=== PATIENT | male | born 1940 | race Caucasian/White ===

== ENCOUNTER 2021-11-09 14:22 | Inpatient (IN) ==
[2021-11-09] MEDS ORDERED: Naloxone 0.4 MG/ML INJ IVP PRN (21:25)
[2021-11-09] MEDS ORDERED: Melatonin 3 MG TABLET PO PRN (21:25)
[2021-11-09] MEDS ORDERED: Ondansetron ODT 4 MG TAB.RAPDIS SL PRN (21:25)
[2021-11-09] MEDS: levETIRAcetam 250 MG TABLET PO SCH (23:05)
[2021-11-10 05:22] LABS: Basophils % 0.5 %
[2021-11-10 05:25] LABS: Eosinophils # 0.2 K/mcL (0.0-0.6); Eosinophils % 3.7 %; Hematocrit 39.1 % (37.5-50.1); Hemoglobin 12.9 g/dL (12.9-16.9); Immature Granulocytes % 1.7 % (0-4); Immature Platelets 3.4 % (1.1-6.1); Lymphocytes % 24.1 %; Mean Corpuscular Hemoglobin 29.7 pg (28.0-33.3); Mean Corpuscular Volume 90.1 fL (83.0-100.0); Mean Platelet Volume 9.3 fL (9.4-12.4); Monocytes # 0.5 K/mcL (0.0-1.3); Monocytes % 11.8 %; Neutrophils # 2.4 K/mcL (1.6-8.9); Red Blood Count 4.34 M/mcL (4.19-5.50); Red Cell Distribution Width 14.6 % (11.5-14.5); Segmented Neutrophils % 58.2 %; White Blood Count 4.1 K/mcL (4.3-11.1)
[2021-11-10 05:28] LABS: Platelet Count 90 K/mcL (140-400)
[2021-11-10 05:31] LABS: INR 1.9; Prothrombin Time 21.5 Seconds (9.4-12.1)
[2021-11-10 05:42] LABS: BUN/Creatinine Ratio 12 (6-26); Blood Urea Nitrogen 10 mg/dL (8-23); Carbon Dioxide 27 mEq/L (23-29); Chloride 99 mEq/L (98-107); Glucose 104 mg/dL (70-105); Osmolality,Calculated 277 (280-300); Sodium 134 mEq/L (136-145); eGFR For African Americans > 60 (> 60); eGFR For Non-African Americans > 60 (> 60)
[2021-11-10] MEDS: Gabapentin 400 MG CAPSULE PO SCH ×3 (07:48→21:36)
[2021-11-10] MEDS: levETIRAcetam 250 MG TABLET PO SCH ×2 (07:49→21:36)
[2021-11-10] MEDS: Budesonide/Formoterol 80/4.5 1 PUFF INH IH SCH ×2 (08:15→22:10)
[2021-11-10] MEDS ORDERED: Finasteride 5 MG TABLET PO SCH (21:00)
[2021-11-11 06:16] LABS: INR 1.5; Prothrombin Time 16.6 Seconds (9.4-12.1)
[2021-11-11 06:30] LABS: BUN/Creatinine Ratio 13 (6-26); Blood Urea Nitrogen 12 mg/dL (8-23); Calcium 9.2 mg/dL (8.6-10.3); Carbon Dioxide 29 mEq/L (23-29); Chloride 101 mEq/L (98-107); Glucose 88 mg/dL (70-105); Osmolality,Calculated 279 (280-300); Potassium 4.2 mEq/L (3.5-5.1); Sodium 135 mEq/L (136-145); eGFR For African Americans > 60 (> 60); eGFR For Non-African Americans > 60 (> 60)
[2021-11-11 06:43] LABS: Basophils % 0.6 %; Eosinophils # 0.1 K/mcL (0.0-0.6); Eosinophils % 2.1 %; Hematocrit 39.8 % (37.5-50.1); Immature Granulocytes % 2.1 % (0-4); Lymphocytes % 24.4 %; Mean Corpuscular HGB Conc 32.7 g/dL (31.6-35.5); Mean Corpuscular Hemoglobin 29.7 pg (28.0-33.3); Mean Corpuscular Volume 91.1 fL (83.0-100.0); Mean Platelet Volume 9.4 fL (9.4-12.4); Monocytes # 0.5 K/mcL (0.0-1.3); Monocytes % 10.7 %; Neutrophils # 2.8 K/mcL (1.6-8.9); Platelet Count 105 K/mcL (140-400); Red Blood Count 4.37 M/mcL (4.19-5.50); Red Cell Distribution Width 14.9 % (11.5-14.5); Segmented Neutrophils % 60.1 %; White Blood Count 4.7 K/mcL (4.3-11.1)
[2021-11-11 06:45] LABS: Lymphocytes # 1.2 K/mcL (0.6-4.6)
[2021-11-11] MEDS: levETIRAcetam 250 MG TABLET PO SCH ×2 (08:45→21:26)
[2021-11-11] MEDS: Gabapentin 400 MG CAPSULE PO SCH ×3 (08:45→21:27)
[2021-11-11] MEDS ORDERED: *HR* FentaNYL (PF) 100 MCG/2 ML VIAL IVP PRN (09:04)
[2021-11-11] MEDS ORDERED: Ondansetron 4 MG/2 ML VIAL IVP PRN (09:04)
[2021-11-11] MEDS ORDERED: *HR* HYDROmorphone PF 0.5 MG/0.5 ML SYRINGE IVP PRN (09:04)
[2021-11-11] MEDS ORDERED: Ropivacaine/PF 0.5% 30 ML VIAL ONE (09:56)
[2021-11-11] MEDS ORDERED: ROPIVACAINE/PF/NS 0.25% 1 EACH SYRINGE INTRAART ONE (09:56)
[2021-11-11] MEDS: Budesonide/Formoterol 80/4.5 1 PUFF INH IH SCH ×2 (10:02→20:40)
[2021-11-11] MEDS ORDERED: *HR* Propofol 200 MG/20 ML VIAL IVP ONE (10:02)
[2021-11-11] MEDS ORDERED: *HR* FentaNYL (PF) 100 MCG/2 ML VIAL ONE (10:02)
[2021-11-11] MEDS ORDERED: Lidocaine -MPF 2% 2 ML VIAL ONE (10:05)
[2021-11-11] MEDS ORDERED: Ondansetron 4 MG/2 ML VIAL ONE (10:05)
[2021-11-11] MEDS ORDERED: Bupivacaine/EPI 1:200k 0.25% 50 ML VIAL ONE (11:08)
[2021-11-11] MEDS ORDERED: EPHEDrine 50 MG/ML VIAL ONE (11:40)
[2021-11-11] MEDS ORDERED: Ipratropium/Albuterol Neb 3 ML IH ONE (13:23)
[2021-11-11] MEDS ORDERED: Ipratropium/Albuterol Neb 3 ML ONE (13:28)
[2021-11-11] MEDS ORDERED: Ondansetron ODT 4 MG TAB.RAPDIS SL PRN (14:03)
[2021-11-11] MEDS ORDERED: Melatonin 3 MG TABLET PO PRN (14:03)
[2021-11-11] MEDS ORDERED: Naloxone 0.4 MG/ML INJ IVP PRN (14:03)
[2021-11-11] MEDS: CeFAZolin 2,000 MG/120 ML BAG IVPB SCH (21:26)
[2021-11-11] MEDS: Finasteride 5 MG TABLET PO SCH (21:26)
[2021-11-12 02:47] LABS: Basophils % 0.1 %
[2021-11-12 02:49] LABS: Mean Corpuscular HGB Conc 33.5 g/dL (31.6-35.5); Monocytes % 4.1 %
[2021-11-12 02:54] LABS: INR 1.4; Prothrombin Time 15.3 Seconds (9.4-12.1)
[2021-11-12 03:04] LABS: BUN/Creatinine Ratio 16 (6-26); Blood Urea Nitrogen 13 mg/dL (8-23); Calcium 9.1 mg/dL (8.6-10.3); Carbon Dioxide 24 mEq/L (23-29); Chloride 99 mEq/L (98-107); Glucose 139 mg/dL (70-105); Hematocrit 39.1 % (37.5-50.1); Hemoglobin 13.1 g/dL (12.9-16.9); Immature Granulocytes % 1.1 % (0-4); Immature Platelets 2.8 % (1.1-6.1); Lymphocytes # 0.6 K/mcL (0.6-4.6); Lymphocytes % 6.6 %; Magnesium 1.7 mg/dL (1.6-2.6); Mean Corpuscular Hemoglobin 29.8 pg (28.0-33.3); Mean Corpuscular Volume 88.9 fL (83.0-100.0); Mean Platelet Volume 9.7 fL (9.4-12.4); Neutrophils # 7.4 K/mcL (1.6-8.9); Osmolality,Calculated 278 (280-300); Platelet Count 115 K/mcL (140-400); Potassium 4.4 mEq/L (3.5-5.1); Red Cell Distribution Width 14.4 % (11.5-14.5); Segmented Neutrophils % 88.1 %; Sodium 133 mEq/L (136-145); White Blood Count 8.4 K/mcL (4.3-11.1); eGFR For African Americans > 60 (> 60); eGFR For Non-African Americans > 60 (> 60)
[2021-11-12 03:07] LABS: Monocytes # 0.3 K/mcL (0.0-1.3)
[2021-11-12] MEDS: CeFAZolin 2,000 MG/120 ML BAG IVPB SCH (04:40)
[2021-11-12] MEDS: Gabapentin 400 MG CAPSULE PO SCH ×3 (09:08→21:19)
[2021-11-12] MEDS: levETIRAcetam 250 MG TABLET PO SCH ×2 (09:08→21:18)
[2021-11-12] MEDS: Budesonide/Formoterol 80/4.5 1 PUFF INH IH SCH ×2 (10:44→20:46)
[2021-11-12] MEDS ORDERED: Warfarin perPT PO PRN (18:00)
[2021-11-12] MEDS ORDERED: *HR* Warfarin 4 MG TABLET PO ONE (18:00)
[2021-11-12] MEDS: Finasteride 5 MG TABLET PO SCH (21:18)
[2021-11-13 06:17] LABS: Hematocrit 37.3 % (37.5-50.1); Hemoglobin 12.2 g/dL (12.9-16.9); Immature Platelets 3.7 % (1.1-6.1); Mean Corpuscular HGB Conc 32.7 g/dL (31.6-35.5); Mean Corpuscular Hemoglobin 30.2 pg (28.0-33.3); Mean Corpuscular Volume 92.3 fL (83.0-100.0); Mean Platelet Volume 9.6 fL (9.4-12.4); Red Blood Count 4.04 M/mcL (4.19-5.50); Red Cell Distribution Width 14.7 % (11.5-14.5); White Blood Count 8.2 K/mcL (4.3-11.1)
[2021-11-13 06:18] LABS: INR 1.2; Prothrombin Time 13.4 Seconds (9.4-12.1)
[2021-11-13 06:34] LABS: BUN/Creatinine Ratio 25 (6-26); Blood Urea Nitrogen 20 mg/dL (8-23); Calcium 8.9 mg/dL (8.6-10.3); Carbon Dioxide 25 mEq/L (23-29); Chloride 101 mEq/L (98-107); Glucose 137 mg/dL (70-105); Osmolality,Calculated 283 (280-300); Potassium 3.8 mEq/L (3.5-5.1); Sodium 134 mEq/L (136-145); eGFR For African Americans > 60 (> 60); eGFR For Non-African Americans > 60 (> 60)
[2021-11-13] MEDS: Gabapentin 400 MG CAPSULE PO SCH ×3 (10:10→20:36)
[2021-11-13] MEDS: levETIRAcetam 250 MG TABLET PO SCH ×2 (10:10→20:36)
[2021-11-13] MEDS: Budesonide/Formoterol 80/4.5 1 PUFF INH IH SCH ×2 (10:11→21:46)
[2021-11-13] MEDS ORDERED: *HR* OxyCODONE Immed Rel 5 MG TABLET PO PRN (16:27)
[2021-11-13] MEDS: *HR* OxyCODONE Immed Rel 5 MG TABLET PO PRN (17:48)
[2021-11-13] MEDS ORDERED: *HR* Warfarin 4 MG TABLET PO ONE (18:00)
[2021-11-13] MEDS: Finasteride 5 MG TABLET PO SCH (20:36)
[2021-11-14 03:39] LABS: Hematocrit 36.9 % (37.5-50.1); Immature Platelets 3.2 % (1.1-6.1); Mean Corpuscular HGB Conc 32.5 g/dL (31.6-35.5); Mean Corpuscular Hemoglobin 29.6 pg (28.0-33.3); Mean Corpuscular Volume 90.9 fL (83.0-100.0); Mean Platelet Volume 9.4 fL (9.4-12.4); Red Blood Count 4.06 M/mcL (4.19-5.50); Red Cell Distribution Width 14.9 % (11.5-14.5); White Blood Count 7.2 K/mcL (4.3-11.1)
[2021-11-14 03:58] LABS: INR 1.4; Prothrombin Time 15.4 Seconds (9.4-12.1)
[2021-11-14 04:02] LABS: BUN/Creatinine Ratio 20 (6-26); Blood Urea Nitrogen 15 mg/dL (8-23); Calcium 8.8 mg/dL (8.6-10.3); Carbon Dioxide 29 mEq/L (23-29); Chloride 102 mEq/L (98-107); Glucose 84 mg/dL (70-105); Osmolality,Calculated 280 (280-300); Potassium 3.9 mEq/L (3.5-5.1); Sodium 135 mEq/L (136-145); eGFR For African Americans > 60 (> 60); eGFR For Non-African Americans > 60 (> 60)
[2021-11-14] MEDS: Gabapentin 400 MG CAPSULE PO SCH ×3 (08:44→20:29)
[2021-11-14] MEDS: levETIRAcetam 250 MG TABLET PO SCH ×2 (08:44→20:29)
[2021-11-14] MEDS: Budesonide/Formoterol 80/4.5 1 PUFF INH IH SCH ×2 (09:46→19:29)
[2021-11-14] MEDS ORDERED: *HR* Warfarin 4 MG TABLET PO ONE (18:00)
[2021-11-14] MEDS: Ipratropium/Albuterol Neb 3 ML IH SCH ×2 (19:29→19:34)
[2021-11-14] MEDS: Finasteride 5 MG TABLET PO SCH (20:28)
[2021-11-14] MEDS: *HR* OxyCODONE Immed Rel 5 MG TABLET PO PRN (20:28)
[2021-11-15] MEDS: Ipratropium/Albuterol Neb 3 ML IH SCH ×7 (00:37→21:09)
[2021-11-15 05:13] LABS: Hematocrit 38.6 % (37.5-50.1); Hemoglobin 12.6 g/dL (12.9-16.9); Mean Corpuscular HGB Conc 32.6 g/dL (31.6-35.5); Mean Corpuscular Volume 91.9 fL (83.0-100.0); Mean Platelet Volume 9.4 fL (9.4-12.4); Platelet Count 101 K/mcL (140-400); Red Cell Distribution Width 14.8 % (11.5-14.5); White Blood Count 6.6 K/mcL (4.3-11.1)
[2021-11-15 05:17] LABS: INR 1.6; Prothrombin Time 17.7 Seconds (9.4-12.1)
[2021-11-15 05:29] LABS: BUN/Creatinine Ratio 15 (6-26); Blood Urea Nitrogen 13 mg/dL (8-23); Calcium 9.1 mg/dL (8.6-10.3); Carbon Dioxide 31 mEq/L (23-29); Chloride 100 mEq/L (98-107); Glucose 92 mg/dL (70-105); Osmolality,Calculated 282 (280-300); Potassium 3.8 mEq/L (3.5-5.1); Sodium 136 mEq/L (136-145); eGFR For African Americans > 60 (> 60); eGFR For Non-African Americans > 60 (> 60)
[2021-11-15] MEDS: Budesonide/Formoterol 80/4.5 1 PUFF INH IH SCH ×2 (07:54→21:11)
[2021-11-15] MEDS: Gabapentin 400 MG CAPSULE PO SCH ×3 (10:19→20:17)
[2021-11-15] MEDS: levETIRAcetam 250 MG TABLET PO SCH ×2 (10:19→20:17)
[2021-11-15] MEDS ORDERED: MethylPREDNISolone 40 MG/ML VIAL IVP SCH (16:00)
[2021-11-15] MEDS ORDERED: *HR* Warfarin 4 MG TABLET PO ONE (18:00)
[2021-11-15] MEDS: Azithromycin 500 MG in 0.9 % Sodium Chloride 250 ML IVPB SCH (18:42)
[2021-11-15] MEDS: Finasteride 5 MG TABLET PO SCH (20:17)
[2021-11-15 21:25] LABS: Adenovirus Not Detected (Not Detect); Bordetella Pertussis Not Detected (Not Detect); Chlamydophila pneumoniae Not Detected (Not Detect); Coronavirus 229E Not Detected (Not Detect); Coronavirus HKU1 Not Detected (Not Detect); Coronavirus NL63 Not Detected (Not Detect); Coronavirus OC43 Not Detected (Not Detect); Human Metapneumovirus Not Detected (Not Detect); Human Rhinovirus/Enterovirus Not Detected (Not Detect); Influenza A Subtype 2009 H1 Not Detected (Not Detect); Influenza B Not Detected (Not Detect); Mycoplasma pneumoniae Not Detected (Not Detect); Parainfluenza Virus 1 Not Detected (Not Detect); Parainfluenza Virus 2 Not Detected (Not Detect); Parainfluenza Virus 3 Not Detected (Not Detect); Parainfluenza Virus 4 Not Detected (Not Detect); Respiratory Syncytial Virus Not Detected (Not Detect); SARS-CoV-2 Not Detected (Not Detect)
[2021-11-16] MEDS: Ipratropium/Albuterol Neb 3 ML IH SCH ×5 (01:39→20:34)
[2021-11-16 04:53] LABS: INR 1.6; Prothrombin Time 17.8 Seconds (9.4-12.1)
[2021-11-16 04:54] LABS: Hematocrit 36.4 % (37.5-50.1); Hemoglobin 12.2 g/dL (12.9-16.9); Mean Corpuscular HGB Conc 33.5 g/dL (31.6-35.5); Mean Corpuscular Volume 89.7 fL (83.0-100.0); Mean Platelet Volume 9.8 fL (9.4-12.4); Platelet Count 111 K/mcL (140-400); Red Blood Count 4.06 M/mcL (4.19-5.50); Red Cell Distribution Width 14.6 % (11.5-14.5)
[2021-11-16 05:14] LABS: BUN/Creatinine Ratio 20 (6-26); Blood Urea Nitrogen 17 mg/dL (8-23); Calcium 9.1 mg/dL (8.6-10.3); Carbon Dioxide 27 mEq/L (23-29); Chloride 100 mEq/L (98-107); Glucose 108 mg/dL (70-105); Osmolality,Calculated 278 (280-300); Potassium 4.2 mEq/L (3.5-5.1); Sodium 133 mEq/L (136-145); eGFR For African Americans > 60 (> 60); eGFR For Non-African Americans > 60 (> 60)
[2021-11-16] MEDS: Gabapentin 400 MG CAPSULE PO SCH ×3 (09:29→20:48)
[2021-11-16] MEDS: levETIRAcetam 250 MG TABLET PO SCH ×2 (09:30→20:48)
[2021-11-16] MEDS: Furosemide 40 MG/4 ML VIAL IVP SCH (09:30)
[2021-11-16] MEDS: Budesonide/Formoterol 80/4.5 1 PUFF INH IH SCH ×2 (11:21→20:34)
[2021-11-16] MEDS: Azithromycin 500 MG in 0.9 % Sodium Chloride 250 ML IVPB SCH (16:12)
[2021-11-16] MEDS ORDERED: *HR* Warfarin 3 MG TABLET PO ONE (18:00)
[2021-11-16] MEDS: Finasteride 5 MG TABLET PO SCH (20:48)
[2021-11-17] MEDS: Ipratropium/Albuterol Neb 3 ML IH SCH ×7 (01:05→23:27)
[2021-11-17] MEDS ORDERED: Diphenoxylate/Atropine 1 TAB TABLET PO ONE (04:03)
[2021-11-17 05:20] LABS: Mean Corpuscular HGB Conc 32.8 g/dL (31.6-35.5)
[2021-11-17 05:22] LABS: Hematocrit 36.9 % (37.5-50.1); Hemoglobin 12.1 g/dL (12.9-16.9); Immature Platelets 3.3 % (1.1-6.1); Mean Corpuscular Hemoglobin 29.8 pg (28.0-33.3); Mean Corpuscular Volume 90.9 fL (83.0-100.0); Mean Platelet Volume 9.2 fL (9.4-12.4); Red Blood Count 4.06 M/mcL (4.19-5.50); Red Cell Distribution Width 14.5 % (11.5-14.5); White Blood Count 7.5 K/mcL (4.3-11.1)
[2021-11-17 05:27] LABS: INR 1.6; Prothrombin Time 17.6 Seconds (9.4-12.1)
[2021-11-17 05:42] LABS: BUN/Creatinine Ratio 23 (6-26); Blood Urea Nitrogen 19 mg/dL (8-23); Carbon Dioxide 26 mEq/L (23-29); Chloride 100 mEq/L (98-107); Glucose 119 mg/dL (70-105); Osmolality,Calculated 279 (280-300); Sodium 133 mEq/L (136-145); eGFR For African Americans > 60 (> 60); eGFR For Non-African Americans > 60 (> 60)
[2021-11-17] MEDS: Budesonide/Formoterol 80/4.5 1 PUFF INH IH SCH ×2 (07:15→20:10)
[2021-11-17] MEDS: levETIRAcetam 250 MG TABLET PO SCH ×2 (08:50→19:55)
[2021-11-17] MEDS: Gabapentin 400 MG CAPSULE PO SCH ×3 (08:50→19:55)
[2021-11-17] MEDS: Furosemide 40 MG/4 ML VIAL IVP SCH (08:51)
[2021-11-17] MEDS ORDERED: *HR* Warfarin 3 MG TABLET PO ONE (18:00)
[2021-11-17] MEDS: Finasteride 5 MG TABLET PO SCH (19:56)
[2021-11-18 02:06] LABS: Hematocrit 36.2 % (37.5-50.1); Hemoglobin 11.9 g/dL (12.9-16.9); Mean Corpuscular HGB Conc 32.9 g/dL (31.6-35.5); Mean Corpuscular Hemoglobin 29.8 pg (28.0-33.3); Mean Corpuscular Volume 90.5 fL (83.0-100.0); Mean Platelet Volume 9.6 fL (9.4-12.4); Platelet Count 124 K/mcL (140-400); Red Cell Distribution Width 14.4 % (11.5-14.5); White Blood Count 7.3 K/mcL (4.3-11.1)
[2021-11-18 02:12] LABS: INR 1.6; Prothrombin Time 17.5 Seconds (9.4-12.1)
[2021-11-18 02:24] LABS: BUN/Creatinine Ratio 21 (6-26); Blood Urea Nitrogen 21 mg/dL (8-23); Calcium 9.2 mg/dL (8.6-10.3); Carbon Dioxide 28 mEq/L (23-29); Chloride 101 mEq/L (98-107); Glucose 112 mg/dL (70-105); Osmolality,Calculated 284 (280-300); Potassium 4.3 mEq/L (3.5-5.1); Sodium 135 mEq/L (136-145); eGFR For African Americans > 60 (> 60); eGFR For Non-African Americans > 60 (> 60)
[2021-11-18] MEDS: Ipratropium/Albuterol Neb 3 ML IH SCH ×6 (04:22→23:43)
[2021-11-18] MEDS: Budesonide/Formoterol 80/4.5 1 PUFF INH IH SCH ×2 (07:23→20:48)
[2021-11-18] MEDS: Gabapentin 400 MG CAPSULE PO SCH ×3 (09:01→20:58)
[2021-11-18] MEDS: levETIRAcetam 250 MG TABLET PO SCH ×2 (09:04→20:58)
[2021-11-18] MEDS: Furosemide 40 MG/4 ML VIAL IVP SCH (09:07)
[2021-11-18] MEDS ORDERED: *HR* Warfarin 4 MG TABLET PO ONE (18:00)
[2021-11-18] MEDS: Finasteride 5 MG TABLET PO SCH (20:58)
[2021-11-19] MEDS: Ipratropium/Albuterol Neb 3 ML IH SCH ×4 (03:12→15:28)
[2021-11-19 05:56] LABS: Basophils % 0.5 %; Eosinophils # 0.3 K/mcL (0.0-0.6); Eosinophils % 4.8 %; Hematocrit 35.3 % (37.5-50.1); Hemoglobin 11.4 g/dL (12.9-16.9); Immature Granulocytes % 3.7 % (0-4); Lymphocytes # 0.9 K/mcL (0.6-4.6); Lymphocytes % 15.1 %; Mean Corpuscular HGB Conc 32.3 g/dL (31.6-35.5); Mean Corpuscular Hemoglobin 29.7 pg (28.0-33.3); Mean Corpuscular Volume 91.9 fL (83.0-100.0); Mean Platelet Volume 9.7 fL (9.4-12.4); Monocytes # 0.7 K/mcL (0.0-1.3); Monocytes % 12.1 %; Neutrophils # 3.6 K/mcL (1.6-8.9); Platelet Count 131 K/mcL (140-400); Red Blood Count 3.84 M/mcL (4.19-5.50); Red Cell Distribution Width 14.3 % (11.5-14.5); Segmented Neutrophils % 63.8 %; White Blood Count 5.6 K/mcL (4.3-11.1)
[2021-11-19 06:03] LABS: INR 1.8; Prothrombin Time 20.2 Seconds (9.4-12.1)
[2021-11-19 06:10] LABS: BUN/Creatinine Ratio 25 (6-26); Blood Urea Nitrogen 22 mg/dL (8-23); Carbon Dioxide 30 mEq/L (23-29); Chloride 100 mEq/L (98-107); Glucose 108 mg/dL (70-105); Magnesium 2.1 mg/dL (1.6-2.6); Osmolality,Calculated 284 (280-300); Potassium 4.1 mEq/L (3.5-5.1); Sodium 135 mEq/L (136-145); eGFR For African Americans > 60 (> 60); eGFR For Non-African Americans > 60 (> 60)
[2021-11-19] MEDS: Budesonide/Formoterol 80/4.5 1 PUFF INH IH SCH (07:44)
[2021-11-19] MEDS: levETIRAcetam 250 MG TABLET PO SCH (08:23)
[2021-11-19] MEDS: Gabapentin 400 MG CAPSULE PO SCH (08:24)
[2021-11-19] MEDS: Furosemide 40 MG/4 ML VIAL IVP SCH (08:24)
[2021-11-19 10:19] VITALS: BP 154/70; PULSE 96; TEMP 98.6
[2021-11-19 12:41] LABS: Adenovirus Not Detected (Not Detect); Bordetella Pertussis Not Detected (Not Detect); Chlamydophila pneumoniae Not Detected (Not Detect); Coronavirus 229E Not Detected (Not Detect); Coronavirus HKU1 Not Detected (Not Detect); Coronavirus NL63 Not Detected (Not Detect); Coronavirus OC43 Not Detected (Not Detect); Human Metapneumovirus Not Detected (Not Detect); Human Rhinovirus/Enterovirus Not Detected (Not Detect); Influenza A Subtype 2009 H1 Not Detected (Not Detect); Influenza B Not Detected (Not Detect); Mycoplasma pneumoniae Not Detected (Not Detect); Parainfluenza Virus 1 Not Detected (Not Detect); Parainfluenza Virus 2 Not Detected (Not Detect); Parainfluenza Virus 3 Not Detected (Not Detect); Parainfluenza Virus 4 Not Detected (Not Detect); Respiratory Syncytial Virus Not Detected (Not Detect); SARS-CoV-2 Not Detected (Not Detect)
[2021-11-19 15:37] VITALS: O2SAT 93
[2021-11-19] MEDS ORDERED: *HR* Warfarin 3 MG TABLET PO ONE (18:00)
== END 2021-11-19 15:52 | DRG 493 ==
LOC: 4WAOSI → SUATTDRO 20:17
PROVIDERS: ADMIT Internal Medicine; ATTEND Pharmacist

== ENCOUNTER 2021-12-16 21:23 | Observation (INO) ==
[2021-12-16 22:02] LABS: Bilirubin,Urine Negative (Negative); Blood,Urine Negative (Negative); Clarity,Urine Clear (Clear); Color,Urine Light-Yellow (Yellow); Glucose,Urine (UA) Normal (Normal); Ketones,Urine Negative (Negative); Leukocyte Esterase,Urine Negative (Negative); Nitrite,Urine Negative (Negative); PH,Urine 6.5 pH Units (5.0-8.0); Protein,Urine Negative (Neg-Trace); Specific Gravity,Urine 1.014 (1.010-1.025); Urobilinogen,Urine Normal (Normal)
[2021-12-16 22:27] LABS: Basophils % 0.3 %; Mean Corpuscular HGB Conc 32.6 g/dL (31.6-35.5); Monocytes % 11.1 %; Red Cell Distribution Width 15.9 % (11.5-14.5)
[2021-12-16 22:29] LABS: Eosinophils # 0.1 K/mcL (0.0-0.6); Eosinophils % 3.8 %; Hematocrit 38.4 % (37.5-50.1); Hemoglobin 12.5 g/dL (12.9-16.9); Immature Granulocytes % 1.6 % (0-4); Immature Platelets 4.5 % (1.1-6.1); Lymphocytes # 1.2 K/mcL (0.6-4.6); Lymphocytes % 32.6 %; Mean Corpuscular Hemoglobin 29.3 pg (28.0-33.3); Mean Corpuscular Volume 90.1 fL (83.0-100.0); Mean Platelet Volume 10.5 fL (9.4-12.4); Monocytes # 0.4 K/mcL (0.0-1.3); Neutrophils # 1.9 K/mcL (1.6-8.9); Red Blood Count 4.26 M/mcL (4.19-5.50); Segmented Neutrophils % 50.6 %; White Blood Count 3.7 K/mcL (4.3-11.1)
[2021-12-16 22:30] LABS: Platelet Count 72 K/mcL (140-400)
[2021-12-16 22:33] LABS: INR 2.4; Prothrombin Time 26.4 Seconds (9.4-12.1)
[2021-12-16 22:36] LABS: Activated Partial Thrombo Time 52.3 Seconds (26.0-36.0)
[2021-12-16 22:49] LABS: Alanine Aminotransferase 17 Units/L (7-52); Albumin 3.6 g/dL (3.5-5.7); Albumin/Globulin Ratio 1.3 (1.1-2.2); Alkaline Phosphatase 122 Units/L (34-104); Aspartate Amino Transferase 18 Units/L (13-39); BUN/Creatinine Ratio 12 (6-26); Bilirubin,Total 0.5 mg/dL (0.3-1.0); Blood Urea Nitrogen 10 mg/dL (8-23); Calcium 8.7 mg/dL (8.6-10.3); Carbon Dioxide 30 mEq/L (23-29); Chloride 100 mEq/L (98-107); Globulin 2.7 g/dL (2.4-3.5); Glucose 107 mg/dL (70-105); Osmolality,Calculated 280 (280-300); Potassium 4.2 mEq/L (3.5-5.1); Sodium 135 mEq/L (136-145); Total Protein 6.3 g/dL (6.4-8.9); Troponin I < 0.03 ng/mL (< 0.04); eGFR For African Americans > 60 (> 60); eGFR For Non-African Americans > 60 (> 60)
[2021-12-16] MEDS ORDERED: Furosemide 40 MG/4 ML VIAL IVP ONE (23:19)
[2021-12-16] MEDS ORDERED: Acetaminophen 325 MG TABLET PO PRN (23:40)
[2021-12-16] MEDS ORDERED: Melatonin 3 MG TABLET PO PRN (23:40)
[2021-12-16] MEDS ORDERED: Ondansetron 4 MG/2 ML VIAL IVP PRN (23:40)
[2021-12-16] MEDS ORDERED: Naloxone 0.4 MG/ML INJ IVP PRN (23:40)
[2021-12-17] MEDS ORDERED: Perflutren Lipid Microsphere 1.3 ML in 0.9 % Sodium Chloride 8.7 ML IVP PRN (02:40)
[2021-12-17] MEDS: Gabapentin 400 MG CAPSULE PO SCH ×4 (02:51→20:52)
[2021-12-17 04:04] LABS: Adenovirus Not Detected (Not Detect); Bordetella Pertussis Not Detected (Not Detect); Chlamydophila pneumoniae Not Detected (Not Detect); Coronavirus 229E Not Detected (Not Detect); Coronavirus HKU1 Not Detected (Not Detect); Coronavirus NL63 Not Detected (Not Detect); Coronavirus OC43 Not Detected (Not Detect); Human Metapneumovirus Not Detected (Not Detect); Human Rhinovirus/Enterovirus Not Detected (Not Detect); Influenza A Subtype 2009 H1 Not Detected (Not Detect); Influenza B Not Detected (Not Detect); Mycoplasma pneumoniae Not Detected (Not Detect); Parainfluenza Virus 1 Not Detected (Not Detect); Parainfluenza Virus 2 Not Detected (Not Detect); Parainfluenza Virus 3 Not Detected (Not Detect); Parainfluenza Virus 4 Not Detected (Not Detect); Respiratory Syncytial Virus Not Detected (Not Detect); SARS-CoV-2 Not Detected (Not Detect)
[2021-12-17 06:56] LABS: Mean Corpuscular Hemoglobin 29.1 pg (28.0-33.3)
[2021-12-17 06:58] LABS: Hematocrit 38.8 % (37.5-50.1); Hemoglobin 12.6 g/dL (12.9-16.9); Immature Platelets 4.6 % (1.1-6.1); Mean Corpuscular HGB Conc 32.5 g/dL (31.6-35.5); Mean Corpuscular Volume 89.6 fL (83.0-100.0); Mean Platelet Volume 9.9 fL (9.4-12.4); Red Blood Count 4.33 M/mcL (4.19-5.50); Red Cell Distribution Width 15.9 % (11.5-14.5); White Blood Count 3.4 K/mcL (4.3-11.1)
[2021-12-17 07:20] LABS: BUN/Creatinine Ratio 12 (6-26); Blood Urea Nitrogen 11 mg/dL (8-23); Calcium 8.8 mg/dL (8.6-10.3); Carbon Dioxide 30 mEq/L (23-29); Chloride 101 mEq/L (98-107); Glucose 92 mg/dL (70-105); Osmolality,Calculated 283 (280-300); Sodium 137 mEq/L (136-145); Troponin I < 0.03 ng/mL (< 0.04); eGFR For African Americans > 60 (> 60); eGFR For Non-African Americans > 60 (> 60)
[2021-12-17 07:37] LABS: INR 2.2; Prothrombin Time 23.9 Seconds (9.4-12.1)
[2021-12-17] MEDS: levETIRAcetam 250 MG TABLET PO SCH ×2 (07:53→20:53)
[2021-12-17] MEDS ORDERED: Regadenoson 0.4 MG/5 ML SYRINGE IVP ONE (09:48)
[2021-12-17] MEDS ORDERED: *HR* OxyCODONE/APAP 5/325 TABLET PO PRN (17:21)
[2021-12-17] MEDS: Isosorbide MONOnitrate (24 HR) 30 MG TAB.ER.24H PO SCH (17:35)
[2021-12-17] MEDS ORDERED: *HR* Warfarin 4 MG TABLET PO SCH (18:00)
[2021-12-17] MEDS ORDERED: Finasteride 5 MG TABLET PO SCH (21:00)
[2021-12-18 05:29] LABS: Basophils % 0.2 %; Red Cell Distribution Width 15.9 % (11.5-14.5)
[2021-12-18 05:30] LABS: Eosinophils # 0.2 K/mcL (0.0-0.6); Eosinophils % 3.6 %; Hematocrit 37.9 % (37.5-50.1); Hemoglobin 12.1 g/dL (12.9-16.9); Immature Granulocytes % 1.4 % (0-4); Immature Platelets 3.8 % (1.1-6.1); Lymphocytes # 1.1 K/mcL (0.6-4.6); Lymphocytes % 26.4 %; Mean Corpuscular HGB Conc 31.9 g/dL (31.6-35.5); Mean Corpuscular Hemoglobin 29.3 pg (28.0-33.3); Mean Corpuscular Volume 91.8 fL (83.0-100.0); Mean Platelet Volume 10.1 fL (9.4-12.4); Monocytes # 0.5 K/mcL (0.0-1.3); Monocytes % 11.3 %; Neutrophils # 2.4 K/mcL (1.6-8.9); Red Blood Count 4.13 M/mcL (4.19-5.50); Segmented Neutrophils % 57.1 %; White Blood Count 4.2 K/mcL (4.3-11.1)
[2021-12-18 05:35] LABS: Platelet Count 71 K/mcL (140-400)
[2021-12-18 05:47] LABS: BUN/Creatinine Ratio 13 (6-26); Blood Urea Nitrogen 11 mg/dL (8-23); Calcium 8.9 mg/dL (8.6-10.3); Carbon Dioxide 28 mEq/L (23-29); Chloride 102 mEq/L (98-107); Glucose 86 mg/dL (70-105); Magnesium 1.8 mg/dL (1.6-2.6); Osmolality,Calculated 279 (280-300); Potassium 4.5 mEq/L (3.5-5.1); Sodium 135 mEq/L (136-145); eGFR For African Americans > 60 (> 60); eGFR For Non-African Americans > 60 (> 60)
[2021-12-18 07:12] VITALS: BP 143/49; PULSE 64; TEMP 97.9; O2SAT 90
[2021-12-18] MEDS ORDERED: Magnesium Oxide 400 MG TABLET PO SCH (07:42)
[2021-12-18] MEDS: levETIRAcetam 250 MG TABLET PO SCH (08:47)
[2021-12-18] MEDS: Gabapentin 400 MG CAPSULE PO SCH (08:48)
[2021-12-18] MEDS: Isosorbide MONOnitrate (24 HR) 30 MG TAB.ER.24H PO SCH (08:49)
== END 2021-12-18 09:25 | disposition home or self-care (01) ==
LOC: EMEROOARM 21:23 → 4WAOSI 21:23 → SUATTDRO 23:37 → 4WAOSI 12-17 00:42
PROVIDERS: ADMIT Internal Medicine; ATTEND Pharmacist